=== PATIENT | female | born 1975 | race Caucasian/White ===

== ENCOUNTER → 2020-03-23 | Outpatient (CLI) | payer OTHER, BC ==
--- NOTE | 2020-03-23 10:45 | RAD ---
3 views left shoulder without comparison for left shoulder pain. FINDINGS: There is a slightly impacted fracture of the surgical neck of the humerus, with some scattered calcified formation suggesting subacute etiology. No dislocation. No radiopaque foreign bodies. IMPRESSION: 1. Healing fracture of the left humerus as described. Electronically signed by: Ayo Schmidt MD (03/23/2020 10:43 AM) [id number]
== END ==
LOC: DXRAD 09:47
PROVIDERS: ATTEND Physician Assistant
DX: S42.392D Other fracture of shaft of left humerus, subsequent encounter for fracture with routine healing (principal); X58.XXXD Exposure to other specified factors, subsequent encounter
CPT/HCPCS: 73030

== ENCOUNTER → 2020-05-25 | Outpatient (CLI) | payer BC ==
--- NOTE | 2020-05-25 17:39 | RAD ---
EXAM: LEFT SHOULDER 3 VIEWS. HISTORY: Fracture follow-up. COMPARISON: 03/23/2020. FINDINGS: An impacted fracture of the surgical neck demonstrates persistent lucency/sclerosis along t he fracture lines. Solid healing is not confirmed by radiographs. Glenohumeral joint spaces and alignment are maintained. Acromioclavicular joint spaces and alignment are maintained. 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 IMPRESSION: 1. An impacted fracture of the left humeral surgical neck is in unchanged alignment. Solid healing is not clear by radiographs. CT could further evaluate if there is concern for nonunion. Electronically signed by: José Miguel Phelan MD (05/25/2020 5:37 PM) [id number]
== END ==
LOC: DXRAD 10:48
PROVIDERS: ATTEND Physician Assistant
DX: S42.292D Other displaced fracture of upper end of left humerus, subsequent encounter for fracture with routine healing (principal); X58.XXXD Exposure to other specified factors, subsequent encounter
CPT/HCPCS: 73030

== ENCOUNTER → 2021-05-13 | Outpatient (CLI) | payer BC ==
--- NOTE | 2021-05-13 14:56 | RAD ---
EXAM: Right knee, 3 views; bilateral knees, standing view. HISTORY: Twisting injury. COMPARISON: None. FINDINGS: 3 views of the right knee are obtained a standing view both knees are obtained. There is no acute fracture, dislocation or subluxation. There are incidental corticated ossicles along the anter ior proximal tibial metaphysis superior to the anterior tibial tubercle, likely due to the sequela of Ashley-Schlatter disease. There is no joint effusion. IMPRESSION: No acute osseous finding. Electronically signed by: Alise Caraballo MD (05/13/2021 2:54 PM) [id number]
--- NOTE | 2021-05-13 14:56 | RAD ---
EXAM: Right knee, 3 views; bilateral knees, standing view. HISTORY: Twisting injury. COMPARISON: None. FINDINGS: 3 views of the right knee are obtained a standing view both knees are obtained. There is no acute fracture, dislocation or subluxation. There are incidental corticated ossicles along the anter ior proximal tibial metaphysis superior to the anterior tibial tubercle, likely due to the sequela of [place]-Schlatter disease. There is no joint effusion. IMPRESSION: No acute osseous finding. Electronically signed by: Alise Caraballo MD (05/13/2021 2:54 PM) [id number]
== END ==
LOC: RAD 14:12
PROVIDERS: ATTEND Physician Assistant
DX: S83.241A Other tear of medial meniscus, current injury, right knee, initial encounter (principal); X58.XXXA Exposure to other specified factors, initial encounter; Y93.89 Activity, other specified; Y92.89 Other specified places as the place of occurrence of the external cause; Y99.8 Other external cause status
CPT/HCPCS: 73562; 73565